=== PATIENT | female | born 1955 | race Caucasian/White ===

== ENCOUNTER 2017-02-08 15:54 | Emergency (ER) | payer OTHER ==
[~2017-02-08] VITALS: Ht 167.6 cm; Wt 77.1 kg
--- NOTE | ~2017-02-08 | EKG ---
[place] [address] [facility] [place] [address] ELECTROCARDIOGRAM REPORT Name: GONZALO DESAI Room #: DEP OMID Bess#: [id number] Admission: 02/08/17 Attend Phys: Discharge: 02/08/17 Date of : 53 Report #: [id number] THIS REPORT FOR: //name// [facility] ED Test Date: 2017-02-08 Test Time: 17:28:39 Pat Name: GONZALO DESAI Department: Room: Gender: F An/Ssn 2 4 Operator: MZOOK : 1955 Requested By: Fadi Vegas Order Number: [id number] MD: Gustavo Espino Measurements Intervals [place] Rate: 104 P: 82 MS: 146 QRS: 21 QRSD: 81 T: 40 QT: 349 QTc: 459 Interpretive Statements Sinus tachycardia Atrial premature complex Biatrial enlargement Probable left ventricular hypertrophy No previous ECG available for comparison Electronically Signed On 02-09-2017 7:40:32 CDT by Gustavo Espino [email or web address] <ELECTRONICALLY SIGNED> By: Gustavo Espino MD, [facility] 02/09/17 0740 1728 1728 Gustavo Espino MD, FACC /EPI
[~2017-02-08 15:54] MED LIST: AMBIEN 10 MG TA10 MG PO; AMBIEN PO; CARISOPRODOL; D3-5050000 UNIT PO; DESYREL150 MG PO; HYDROCODON-ACE1 EAC7; IBUPROFEN 600600 M1 PO; LEVOTHYROXINE0.05 MG PO; LEXAPRO 10 MG T10 M1 PO; LIORESAL 10 MG10 MG PO; LISINOPRIL5 MG PO; LOXAPINE10 MG PO; PERCOCET 5-3251 EACH PO; PROTONIX40 M1 PO; TIGAN300 MG PO; VALIUM5 MG; ZANTAC 150MG T150 MG PO
[2017-02-08 18:17] LABS: BASOPHILS 0.8 % (0.0-2.0); EOSINOPHILS 1.3 % (0.0-3.0); HEMATOCRIT 31.7 % (37.0-47.0); HEMOGLOBIN 10.7 gm/dL (12.0-15.0); LYMPHOCYTES 17.9 % (24.0-44.0); MCH 33.6 pg (26.0-34.0); MCHC 33.8 g/dL (28.0-37.0); MCV 99.5 fL (80.0-100.0); MONOCYTES 6.7 % (1.0-8.0); POLYS 73.3 % (36.0-66.0); RBC 3.19 mil/uL (4.20-5.00); WBC 13.6 thou/uL (4.0-11.0)
[2017-02-08 18:18] LABS: MANUAL DIFF NO
[2017-02-08 18:20] LABS: PLATELET COUNT 1042 thou/uL (150-400)
[2017-02-08 18:23] LABS: CALCIUM 8.6 mg/dL (8.5-10.1); CREATININE 0.6 mg/dL (0.6-1.0); POTASSIUM 4.3 mmol/L (3.5-5.1)
[2017-02-08 18:27] LABS: ALBUMIN 3.7 g/dL (3.4-5.0); TOTAL BILIRUBIN 0.2 mg/dL (<0.1-1.0); TOTAL PROTEIN 6.4 g/dL (6.4-8.2)
[2017-02-08 19:38] LABS: URINE BILIRUBIN NEGATIVE (Negative); URINE BLOOD NEGATIVE (Negative); URINE GLUCOSE-RANDOM* NEGATIVE (Negative); URINE KETONES NEGATIVE (Negative); URINE LEUKOCYTES-REFLEX NEGATIVE (Negative); URINE PROTEIN (DIPSTICK) NEGATIVE (Negative); URINE UROBILINOGEN 0.2 E.U./dl (0.2-1.0)
[2017-02-08 19:39] LABS: URINE COLOR YELLOW
[2017-02-08 19:47] LABS: AMP/METHAMP Negative (Negative); BARBITURATES Negative (Negative); BENZODIAZEPINES Negative (Negative); COCAINE Negative (Negative); METHADONE Negative (Negative); OPIATES Negative (Negative); PCP Negative (Negative); THC Negative (Negative)
[2017-02-08 21:54] VITALS: BP 146/83
== END 2017-02-08 21:54 ==
LOC: ER 15:54
PROVIDERS: Emergency Medicine
DX: F22 Delusional disorders (principal); F23 Brief psychotic disorder; F31.9 Bipolar disorder, unspecified